=== PATIENT | male | born 1960 | race Caucasian/White ===

== ENCOUNTER 2020-11-13 14:56 | Emergency (ER) | payer MEDICARE, MEDICAID ==
[~2020-11-13] VITALS: Ht 172.7 cm; Wt 94.3 kg
[2020-11-13] MEDS ORDERED: JARDIANCE10 MG PO (15:06)
[2020-11-13] MEDS ORDERED: SUPER THERAVIT1 EACH PO (15:06)
[2020-11-13] MEDS ORDERED: LIPITOR 20 MG T20 M1 PO (15:06)
[2020-11-13] MEDS ORDERED: COZAAR 25 MG TA25 M2 PO (15:06)
[2020-11-13] MEDS ORDERED: ASA81BEC PO (15:06)
[2020-11-13] MEDS ORDERED: TOPROL XL50 MG PO (15:07)
[2020-11-13] MEDS ORDERED: KLOR-CON M2020 MEQ PO (15:08)
[2020-11-13 17:05] VITALS: BP 124/74
== END 2020-11-13 17:06 | disposition home or self-care (01) ==
LOC: M.ERS 14:56
DX: M25.511 Pain in right shoulder (principal); G89.29 Other chronic pain; E11.9 Type 2 diabetes mellitus without complications; I10 Essential (primary) hypertension; Z88.1 Allergy status to other antibiotic agents; Z79.82 Long term (current) use of aspirin; Z79.899 Other long term (current) drug therapy